=== PATIENT | male | born 1975 | race Caucasian/White ===

== ENCOUNTER 2020-11-19 14:15 | Emergency (ER) | payer BC, SELFPAY ==
[2020-11-19 14:52] VITALS: BP 155/106; PULSE 116; RESP 16; TEMP 36.3; O2SAT 99
[2020-11-19 14:56] VITALS: BP 158/111
--- NOTE | 2020-11-19 14:56 | ED.SKABFB ---
HPI - Skin/Abscess/Foreign Bdy General Chief complaint: Skin/Abscess/Foreign Body Stated complaint: rectal pain Time Seen by Provider: 11/19/20 14:29 Source: patient and RN notes reviewed Mode of arrival: ambulatory Limitations: no limitations History of Present Illness HPI narrative: Patient presents today complaining of severe pain to the rectum with a possible hemorrhoid. Very severe pain with bowel movements, walking and moving. He does report some pain with wiping, but denies any blood from the area other than this. Denies tarry stools, fever, abdominal pain. No history of abscesses, staph infections, boils. He has been using Preparation H, Epsom salt, ibuprofen, Tucks pads. States his bowel movements are somewhat firm. MD complaint: other (Hemorrhoid) Related Data Home Medications Medication Instructions Recorded Confirmed brexpiprazole [Rexulti] 1 mg PO DAILY 11/19/20 11/19/20 dextroamphetamine-amphetamine 50 mg PO DAILY 11/19/20 11/19/20 [Mydayis] vilazodone [Viibryd] 20 mg PO DAILY 11/19/20 11/19/20 Allergies Allergy/AdvReac Type Severity Reaction Status Date / Time zolpidem Allergy Unknown Other Verified 11/19/20 14:26 No Known Allergies Allergy Unverified 07/25/17 15:19 Review of Systems Review of Systems: Narrative: CONSTITUTIONAL: Denies body aches, fever, chills, or sweats. EYES: Denies visual changes, redness, or discharge. ENT: Denies rhinorrhea, congestion, sore throat, or otalgia. CARDIOVASCULAR: Denies chest pain, palpitations, or edema. RESPIRATORY: Denies cough or dyspnea. GASTROINTESTINAL: Denies abdominal pain, nausea, vomiting, or diarrhea. + Hemorrhoid GENITOURINARY: Denies dysuria or hematuria. SKIN: Denies rash, itching, or wounds. MUSCULOSKELETAL: Denies back pain, joint pain, or myalgia. NEUROLOGIC: Denies headache, numbness, tingling, or weakness. PSYCH: Denies depression or anxiety. [facility] Past Medical History Medical History (Updated 11/19/20 @ 15:05 by Priti Green, [employer], [place]) ADHD Depression Family History Family History (Updated 07/25/14 @ 07:13 by DOCTOR UNKNOWN) Father Hypertension Mother Family history of coronary artery disease Social History Social History Alcohol intake: current Comments At time of signature, I have reviewed and agree with nursing past medical, surgical, social and family history unless otherwise noted. Please see nursing chart for further information. There is no relevant family history pertinent to the presenting complaint Exam Narrative: Exam Narrative: GENERAL: Well-appearing, well-nourished, and in mild pain distress. Patient will not sit down due to pain. He is standing slightly bent over. HEAD: Normocephalic, atraumatic. EYES: EOMI. No redness or drainage. Conjunctivae normal. ENT: Mucous membranes pink and moist. NECK: Normal AROM. CHEST: No respiratory distress. : Patient has ~2cm round erythematous, fluctuant perirectal abscess to the right side of the rectum that is draining a copious amount of brown, blood-tinged, malodorous purulent discharge. Area is very tender to palpation. MUSCULOSKELETAL: No bony tenderness. EXTREMITIES: Normal range of motion. No edema. SKIN: Warm, dry, no rash. Capillary refill normal. Normal skin turgor. NEURO: No focal deficits. Alert and oriented x3. Gait steady. PSYCH: Normal affect. No signs of depression or anxiety. Course Vital Signs Vital signs: Vital Signs Temperature 97.3 F L 11/19/20 14:52 Pulse Rate 116 H 11/19/20 14:52 Respiratory Rate 16 11/19/20 14:52 Blood Pressure 155/106 H 11/19/20 14:52 Pulse Oximetry 99 11/19/20 14:52 Temperature 97.3 F L 11/19/20 14:52 Pulse Rate 116 H 11/19/20 14:52 Respiratory Rate 16 11/19/20 14:52 Blood Pressure 155/106 H 11/19/20 14:52 Pulse Oximetry 99 11/19/20 14:52 Reviewed. Pt has been instructed to follow up with his PCP regarding his elevated blood pressure today. Transfer Transfer
== END 2020-11-19 15:10 | disposition short-term general hospital (02) ==
PROVIDERS: Emergency Provider Nurse Practitioner
DX: K61.1 Rectal abscess (principal); F90.9 Attention-deficit hyperactivity disorder, unspecified type; F32.9 Major depressive disorder, single episode, unspecified; R03.0 Elevated blood-pressure reading, without diagnosis of hypertension
CPT/HCPCS: 99212; G0463

== ENCOUNTER 2020-11-19 15:27 | Emergency (ER) | payer BC, SELFPAY ==
[2020-11-19 15:49] VITALS: BP 169/106; PULSE 110; RESP 18; TEMP 36.3; O2SAT 100
--- NOTE | 2020-11-19 17:14 | ED.ABDPAIN ---
HPI - Abdominal Pain General Chief Complaint: Unspecified Stated Complaint: rectal pain Time Seen by Provider: 11/19/20 16:30 Source: patient Mode of arrival: ambulatory Limitations: no limitations History of Present Illness HPI narrative: 45-year-old male Presents for evaluation of a couple of days of santos anal pain that is getting worse He has a history of hemorrhoids He thought this was another episode of that which he was taking some appropriate steps to address however today his pain is a lot worse than it had been previously and he sought evaluation at urgent care There they thought he might have a perirectal abscess and sent him to the ER Pain Consistency: constant Severity: severe Exacerbating factors: bowel movement Related Data Home Medications Medication Instructions Recorded Confirmed brexpiprazole [Rexulti] 1 mg PO DAILY 11/19/20 11/19/20 vilazodone [Viibryd] 20 mg PO DAILY 11/19/20 11/19/20 Allergies Allergy/AdvReac Type Severity Reaction Status Date / Time No Known Allergies Allergy Verified 11/19/20 15:52 Review of Systems Review of Systems: All systems reviewed & are unremarkable except as noted in HPI and below Gastrointestinal: Gastrointestinal: Reports hematochezia, Denies constipation, Denies nausea, Denies vomiting and Reports other (Perianal pain) Genitourinary: Genitourinary: Denies dysuria and Denies urinary frequency PMF Past Medical History Medical History (Updated 11/19/20 @ 17:27 by Compa Powers MD) ADHD Depression External ulcerated hemorrhoids Family History Family History (Updated 07/25/14 @ 07:13 by DOCTOR UNKNOWN) Father Hypertension Mother Family history of coronary artery disease Social History Social History Alcohol intake: current Gender identity (if verbalized by the patient): Male Exam Const: General: alert Orientation/consciousness: patient oriented x3 Eyes: Conjunctivae: conjunctivae normal EOM: EOMs intact bilaterally Resp: Effort & Inspection: normal respiratory effort and not tachypneic GI: Other: There is what appears to be a fairly large and partially spontaneously drained thrombosed hemorrhoid on the right-hand side at approximately 5:00 On rectal examination there is no internally palpable swelling or tenderness : Male General Exam: Yes normal external exam Skin: General skin exam: normal color Neuro: General: patient oriented x3 and moves all extremities Course Course Emergency Course: Discussed with Dr. Houston who can see him in the office on Tuesday Discussed with patient that I do not feel I can benefit him by incising anything at this time He plans on having some cocktails over [place] so avoiding Flagyl Vital Signs Vital signs: Vital Signs Temperature 36.3 C L 11/19/20 15:49 Pulse Rate 110 H 11/19/20 15:49 Respiratory Rate 18 11/19/20 15:49 Blood Pressure 169/106 H 11/19/20 15:49 Pulse Oximetry 100 11/19/20 15:49 Temperature 36.3 C L 11/19/20 15:49 Pulse Rate 110 H 11/19/20 15:49 Respiratory Rate 18 11/19/20 15:49 Blood Pressure 169/106 H 11/19/20 15:49 Pulse Oximetry 100 11/19/20 15:49 Discharge Plan Discharge Clinical Impression: External ulcerated hemorrhoids Patient Disposition: Home, Self-Care Condition: Stable Instructions: Antibiotic Form, Hemorrhoids (ED), Thrombosed Hemorrhoid (ED) Additional Instructions: Hot sitz bath's for 5 times a day Stool softener, [id number] MiraLAX twice a day Call Dr. Houston's office on Tuesday morning to arrange follow-up exam Prescriptions: New hydrocodone-acetaminophen [Baxter] 5-325 mg tablet 1 tablet PO Q6H PRN (Reason: pain) Qty: 20 RF: 0 hydrocortisone [Anusol-HC] 2.5 % cream with perineal applicator 1 applic SD BID Qty: 30 RF: 0 No Action Viibryd 20 mg tablet 20 mg PO DAILY RF: 0 Rexulti 1 mg tablet 1 mg PO DAILY RF: 0 Follow-up/Referrals: PHYSICIAN,[place]
== END 2020-11-19 17:48 | disposition home or self-care (01) ==
PROVIDERS: Emergency Provider Emergency Medicine
DX: K64.8 Other hemorrhoids (principal)
CPT/HCPCS: 99283